=== PATIENT | male | born 1945 | race Hispanic/Latino ===

== ENCOUNTER 2019-05-20 20:29 | Emergency (ER) | payer MEDICARE ==
--- NOTE | 2019-05-20 20:56 | Event Note ---
ED Screening Note Date of service: 05/20/19 Time: 20:52 ED Screening Note: This is a 73 y.o. M. that presents to the ER with DAVINA for 3 days. Patient currently receiving radiation and chemo for right lung cancer. Received chemo 5 days ago. PMH of HTN, CABG, DM [facility] Denies chest pain or swelling This initial assessment/diagnostic orders/clinical plan/treatment(s) is/are subject to change based on patients health status, clinical progression and re-assessment by fellow clinical providers in the ED. Further treatment and workup at subsequent clinical providers discretion. Patient/guardian urged not to elope from the ED as their condition may be serious if not clinically assessed and managed. Initial orders include: Labs EKG CXR
[2019-05-20 21:23] LABS: Hematocrit 24.8 % (35.5-45.6); Mean Corpuscular HGB Conc 32 % (32-34); Mean Corpuscular Volume 81 fl (84-94); Platelet Count 328 K/mm3 (140-440); Red Blood Count 3.07 M/mm3 (3.65-5.03); Red Cell Distribution Width 19.8 % (13.2-15.2)
--- NOTE | 2019-05-20 21:31 | XRay Report ---
CHEST 2 VIEWS INDICATION / CLINICAL INFORMATION: Dyspnea. COMPARISON: None available. FINDINGS: SUPPORT DEVICES: Right jugular Port-A-Cath with the tip overlying the origin of the right brachioceph alic vein. HEART / MEDIASTINUM: Median sternotomy and aortic valve prosthesis. Normal heart size and pulmonary v asculature. LUNGS / PLEURA: Mild diffuse reticular interstitial lung disease. Slight blunting of the right latera l costophrenic angle. No pneumothorax. ADDITIONAL FINDINGS: No significant additional findings. IMPRESSION: 1. Mild diffuse nonspecific interstitial lung disease may be acute or chronic. Minimal blunting of th e right lateral costophrenic angle may be related to trace pleural effusion or pleural thickening. 2. Right jugular Port-A-Cath tip overlies the proximal right brachiocephalic vein. Signer Name: Maurice Maldonado MD Signed: 05/20/2019 9:27 PM Workstation Name: [id number]
[2019-05-20 21:47] LABS: Alanine Aminotransferase 19 units/L (7-56); Albumin 3.6 g/dL (3.9-5); BUN/Creatinine Ratio 41; Blood Urea Nitrogen 29 mg/dL (9-20); Calcium 8.6 mg/dL (8.4-10.2); Hemolysis Index 7
[2019-05-20 22:06] LABS: Total Cells Counted 100
[2019-05-20 22:07] LABS: Anisocytosis 1+; Band Neutrophils # (Manual) 5.8 K/mm3; Basophils % (Manual) 0 % (0.0-1.8); Dimorphic RBC Yes; Hypochromasia 1+
--- NOTE | 2019-05-20 22:25 | Emergency Department Report ---
ED Shortness of Breath HPI - General Chief Complaint: Dyspnea/Respdistress Stated Complaint: DAVINA/ HAD CHEMO ON THE 5TH Time Seen by Provider: 05/20/19 20:51 Source: patient Mode of arrival: Ambulatory Limitations: No Limitations - History of Present Illness Initial Comments: 73-year-old male with history of COPD, lung cancer presents the ED with shortne ss of breath since yesterday. Patient reports dyspnea on exertion, improves with rest. He is not on home O2. Patient reports he had a nebulizer treatment without relief. He denies fever, reports a chronic cough that is unchanged. He denies any leg pain or swelling. Patient had chemotherapy 3 days ago, followed by " shot to boost his white blood cells" the next day. States he was given an antibiotic prescription by his oncologist a few days ago. He is unsure of the name of the medication and what he is being treated for. MD Complaint: shortness of breath -: days(s) (2) Severity: moderate Consistency: intermittent Improves With: rest Worsens With: exertion, coughing Known History Of: COPD Associated Symptoms: cough (chronic) Treatments Prior to Arrival: bronchodilator - Related Data Home Oxygen Therapy: No Home Medications Medication Instructions Recorded Confirmed Last Taken Amlodipine Besylate [Norvasc] 5 mg PO DAILY 05/20/19 05/20/19 Unknown Aspirin EC [Halfprin EC] 1 tab PO DAILY 05/20/19 05/20/19 Unknown Budesonide/Formoterol Fumarate 10.2 gm IH 05/20/19 Unknown [Symbicort 160-4.5 Mcg Inhaler] Cyanocobalamin [Vitamin B-12] 2,000 mcg PO DAILY 05/20/19 05/20/19 Unknown Doxazosin Mesylate [Cardura] 2 mg PO DAILY 05/20/19 05/20/19 Unknown Gabapentin [Neurontin] 1,200 mg PO Q8HR 05/20/19 05/20/19 Unknown HYDROcodone/APAP 10-325 [Upperco 1 each PO Q6HR PRN 05/20/19 05/20/19 Unknown 10/325] Ipratropium/Albuterol Sulfate 1 spray IH QID 05/20/19 05/20/19 Unknown [Combivent Respimat] Metformin HCl [Glucophage] 1,000 mg PO BID 05/20/19 05/20/19 Unknown Multivit,Calc,Mins/Iron/Folic 1 tab PO DAILY 05/20/19 05/20/19 Unknown [Thera-M Caplet] Pravastatin [Pravachol] 80 mg PO QHS 05/20/19 05/20/19 Unknown Ropinirole HCl [Requip] 2 mg PO QHS 05/20/19 05/20/19 Unknown glipiZIDE [Glucotrol] 10 mg PO BID 05/20/19 05/20/19 Unknown lisinopriL [Zestril TAB] 10 mg PO QDAY 05/20/19 05/20/19 Unknown Allergies Allergy/AdvReac Type Severity Reaction Status Date / Time No Known Allergies Allergy Unverified 05/20/19 20:45 ED Review of Systems ROS: Stated complaint: DAVINA/ HAD CHEMO ON THE Other details as noted in HPI Comment: All other systems reviewed and negative Constitutional: denies: chills, fever Respiratory: cough, SOB with exertion Cardiovascular: denies: chest pain Gastrointestinal: denies: nausea, vomiting Musculoskeletal: other (Denies leg pain and swelling) ED Past Medical Hx - Past Medical History Previous Medical History?: Yes Hx Hypertension: Yes Hx Diabetes: Yes Hx of Cancer: Yes (Lung) - Surgical History Past Surgical History?: Yes Hx Open Heart Surgery: Yes Additional Surgical History: Cardiac Valve Replacement. - Social History Smoking Status: Former Smoker Substance Use Type: None - Medications Home Medications: Home Medications Medication Instructions Recorded Confirmed Last Taken Type Amlodipine Besylate [Norvasc] 5 mg PO DAILY 05/20/19 05/20/19 Unknown History Aspirin EC [Halfprin EC] 1 tab PO DAILY 05/20/19 05/20/19 Unknown History Budesonide/Formoterol Fumarate 10.2 gm IH 05/20/19 Unknown History [Symbicort 160-4.5 Mcg Inhaler] Cyanocobalamin [Vitamin B-12] 2,000 mcg PO DAILY 05/20/19 05/20/19 Unknown History Doxazosin Mesylate [Cardura] 2 mg PO DAILY 05/20/19 05/20/19 Unknown History Gabapentin [Neurontin] 1,200 mg PO Q8HR 05/20/19 05/20/19 Unknown History HYDROcodone/APAP 10-325 [Upperco 1 each PO Q6HR PRN 05/20/19 05/20/19 Unknown History 10/325] Ipratropium/Albuterol Sulfate 1 spray IH QID 05/20/19 05/20/19 Unknown History [Combivent Respimat] Metformin HCl [Glucophage] 1,000 mg PO BID 05/20/19 05/20/19 Unknown History Multivit,Calc,Mins/Iron/Folic 1 tab PO DAILY 05/20/19 05/20/19 Unknown History [Thera-M Caplet] Pravastatin [Pravachol] 80 mg PO QHS 05/20/19 05/20/19 Unknown History Ropinirole HCl [Requip] 2 mg PO QHS 05/20/19 05/20/19 Unknown History glipiZIDE [Glucotrol] 10 mg PO BID 05/20/19 05/20/19 Unknown History lisinopriL [Zestril TAB] 10 mg PO QDAY 05/20/19 05/20/19 Unknown History ED Physical Exam - General Limitations: No Limitations General appearance: alert, in no apparent distress - Head Head exam: Present: atraumatic, normocephalic - Eye Eye exam: Present: normal appearance, EOMI - ENT ENT exam: Present: mucous membranes moist - Neck Neck exam: Present: normal inspection - Respiratory Respiratory exam: Present: normal lung sounds bilaterally. Absent: respiratory distress, wheezes, rales - Cardiovascular Cardiovascular Exam: Present: regular rate, normal rhythm - GI/Abdominal GI/Abdominal exam: Present: soft. Absent: distended, tenderness - Extremities Exam Extremities exam: Present: normal inspection. Absent: pedal edema, calf tender ness - Neurological Exam Neurological exam: Present: alert, oriented X3 - Psychiatric Psychiatric exam: Present: normal affect, normal mood - Skin Skin exam: Present: warm, dry, intact, normal color ED Course Vital Signs 05/20/19 05/20/19 05/20/19 20:38 20:55 21:39 Temperature 98.1 F 98.1 F Pulse Rate 107 H 107 H Respiratory 20 18 Rate Blood Pressure 107/53 107/53 O2 Sat by Pulse 95 95 90 Oximetry 05/20/19 05/20/19 05/20/19 21:45 22:00 22:06 Temperature Pulse Rate 99 H 95 H 96 H Respiratory 15 14 15 Rate Blood Pressure 109/53 113/52 113/52 O2 Sat by Pulse 97 99 99 Oximetry 05/20/19 05/20/19 05/20/19 22:45 23:05 23:16 Temperature Pulse Rate 96 H 96 H Respiratory 17 15 Rate Blood Pressure 101/55 101/55 101/55 O2 Sat by Pulse 98 98 100 Oximetry 05/20/19 05/20/19 05/21/19 23:30 23:46 00:00 Temperature Pulse Rate 95 H 94 H 94 H Respiratory 14 14 13 Rate Blood Pressure 101/55 101/55 101/55 O2 Sat by Pulse 99 99 100 Oximetry 05/21/19 05/21/19 05/21/19 00:16 00:30 00:46 Temperature Pulse Rate 95 H 103 H 101 H Respiratory 16 18 15 Rate Blood Pressure 101/55 101/55 101/55 O2 Sat by Pulse 99 93 96 Oximetry 05/21/19 05/21/19 05/21/19 01:00 01:16 01:21 Temperature 98.1 F Pulse Rate 98 H 95 H 95 H Respiratory 18 14 14 Rate Blood Pressure 101/55 101/55 O2 Sat by Pulse 97 98 98 Oximetry ED Medical Decision Making - Lab Data Result diagrams: 05/20/19 21:09 05/20/19 21:09 - EKG Data -: EKG Interpreted by Ri EKG shows normal: sinus rhythm, axis, intervals, QRS complexes, ST-T waves Rate: normal - EKG Data Interpretation: other (lateral T wave inversions) - Radiology Data Radiology results: report reviewed, image reviewed - Medical Decision Making 73-year-old male with previous history of COPD, currently being treated for lung cancer. Patient presents with dyspnea on exertion since yesterday. Patient had chemotherapy 3 days ago, followed by "shot to boost his white blood cells" 2 days ago. This injection was likely Neupogen. Patient currently has WBCs of 57.8 which is likely related to the Neupogen. Patient is afebrile. Room air O2 sats are 93 to 94% which are acceptable due to his history of COPD and lung cancer. However patient states he feels better while wearing 2 L of O2, which increases his O2 sats to 100%. Patient is not on home O2. Patient states he does not feel as if he needs a nebulizer treatment at this time. Patient has no wheezing or abnormal lung sounds on exam. Patient reports he has been suffering from a chronic cough for several months now. Patient states the coughing also triggers his dyspnea. EKG unremarkable, troponin was negative. CTA was performed to rule out PE given patient's history of malignancy. CTA was negative for PE. It did show evidence of patient's lung cancer. There is evidence of atelectasis, however no infiltrates or pneumonia. Patient symptoms are likely related to his COPD, however he is not hypoxic. Neupogen also has a side effect of dyspnea, and given he likely received this medication following his chemotherapy, it could also be the cause of his dyspnea. We will discharge patient home at this time. Patient and family okay with this plan. Patient apparently already taking antibiotics, which were prescribed to him a couple of days ago. Patient advised to contact his oncologist and parks recreation coordinator on tomorrow, and advised to rest and not exert himself. Return precautions given. - Differential Diagnosis COPD, PE, pneumonia, pulmonary edema Critical care attestation.: If time is entered above; I have spent that time in minutes in the direct care of this critically ill patient, excluding procedure time. ED Disposition Clinical Impression: COPD exacerbation Disposition: DC-01 TO HOME OR SELFCARE Is pt being admited?: No Condition: Stable Instructions: Chronic Obstructive Pulmonary Disease (ED) Referrals: PRIMARY CARE, [Primary Care Provider] - 24 Hours Time of Disposition: 00:49
--- NOTE | 2019-05-20 23:56 | Cat Scan Report ---
CT angio chest INDICATION / CLINICAL INFORMATION: MAIN: lung CA, SOB. 100 ML OMNIPAQUE 350. TECHNIQUE: CTA CHEST WITH IV CONTRAST INDICATION / CLINICAL INFORMATION: MAIN: lung CA, SOB. 100 ML OMNIPAQUE 350. TECHNIQUE: Axial CT images were obtained through the chest after injection of 100 mL IV contrast. 3 plane MIP an d/or 3D reconstructions were produced. All CT scans at this location are performed using CT dose redu ction for ALARA by means of automated exposure control. COMPARISON: Chest radiograph 05/20/2019 FINDINGS: PULMONARY ARTERIES: No pulmonary emboli. THORACIC AORTA: No significant abnormality. HEART: No significant abnormality. CORONARY ARTERIES: Coronary artery calcification present. PLEURA: Small right pleural effusion No pneumothorax. LYMPH NODES: There are pathologically enlarged lymph nodes in the superior mediastinum to the right o f the trachea as well as in the pretracheal region and right hilum. Patient has known diagnosis of jennifer ng carcinoma. LUNGS: There is soft tissue mass in the right lower lobe posteriorly measuring approximately 3.8 cm. There is mild parenchymal disease in the left lung base which has an appearance more suggestive of at electasis. ADDITIONAL FINDINGS: None. UPPER ABDOMEN: No acute findings. SKELETAL STRUCTURES: Spondylitic change. IMPRESSION: 1. No CT evidence for pulmonary embolism. 2. 3.8 cm right lower lobe lung mass consistent with bronchogenic carcinoma. Additionally there is pr ostatic adenopathy throughout the superior mediastinum, pretracheal portion of mediastinum, and right hilum. Small right pleural effusion. 3. left lower lobe parenchymal disease with appearance more suggestive of atelectasis rather than pne umonia. Please correlate clinically. Signer Name: Ada Child MD Signed: 05/20/2019 11:51 PM Workstation Name: [id number]
[2019-05-21 01:21] VITALS: BP 101/55
== END 2019-05-21 01:21 | disposition home or self-care (01) ==
LOC: ED 20:29
DX: J44.1 Chronic obstructive pulmonary disease with (acute) exacerbation (principal); I10 Essential (primary) hypertension; E11.9 Type 2 diabetes mellitus without complications; Z87.891 Personal history of nicotine dependence; Z85.118 Personal history of other malignant neoplasm of bronchus and lung; Z79.899 Other long term (current) drug therapy
CPT/HCPCS: 36415; 71046; 71275; 80053; 83880; 84484; 85007; 85025; 93005; 93010; 99284; Q9967